=== PATIENT | male | born 1980 | race Caucasian/White ===

== ENCOUNTER 2016-06-02 22:47 | Emergency (ER) | payer OTHER ==
[~2016-06-02] VITALS: Ht 172.7 cm; Wt 136.9 kg
[~2016-06-02 22:47] MED LIST: ADIPEX-P37.5 MG; ADVAIR 250/501 DISK IH; ADVAIR HFA120 INHALA IH; AMLODIPINE BESY10 MG PO; ATORVASTATIN CA10 MG PO; AUGMENTIN875 MG PO; BACTRIM,SEPT1 TABLET; BUSPAR5 MG PO; CEPHALEXIN500 M1 PO; CLEOCIN300 MG PO; CLINDAMYCIN HC300 MG PO; COZAAR100 MG PO; CYMBALTA60 MG PO; ERGOCALCIF50000 UNIT PO; FLONASE16 G1 BOTH NARES; FUROSEMIDE80 MG PO; HYDROCODON-ACE1 EAC7 PO; HYDROCODON-ACE1 EACH; INDOCIN SR75 MG PO; INDOMETHACIN75 MG PO; K-DUR20 MEQ PO; KEFLEX500 MG PO; KLOR-CON M2020 MEQ PO; KLOR-CON-EF 2525 MEQ PO; LASIX80 MG PO; LOSARTAN POTAS100 MG PO; NORVASC10 MG PO; PERCOCET 5/31 TABLET PO; PERCOCET 7.51 TABLET PO; PROAIR HFA8.5 GM IH; ROXICET 5-3251 EACH; TRAMADOL HCL50 MG PO; VENTOLIN HFA18 GM IH; VERAPAMIL HCL120 M1 PO; VERAPAMIL HCL120 M2 PO; VERAPAMIL HCL120 MG PO
[2016-06-02 22:50] VITALS: BP 146/78
[2016-06-02 23:17] LABS: HEMATOCRIT 43.4 % (38.0-50.0); MCH 28.8 PG (29.0-34.0); MCHC 32.3 G/DL (30.0-36.0); MCV 89.3 FL (86-99); RBC DIS.WIDTH-CV 13.1 % (11.8-14.6); RBC DIS.WIDTH-SD 42.6 % (39-53); RED BLOOD COUNT 4.86 M/uL (4.00-5.50); WHITE BLOOD COUNT 11.8 K/uL (4.1-10.2)
[2016-06-02 23:26] LABS: CHLORIDE 101 mEq/L (99-109); POTASSIUM 4.6 mEq/L (3.7-5.4); SODIUM 139 mEq/L (136-147)
[2016-06-02 23:28] LABS: GLUCOSE 74 mg/dL (70-99)
[2016-06-02 23:29] LABS: ANION GAP 8 MEQ/L (2-14)
[2016-06-02 23:30] LABS: TOTAL BILIRUBIN 0.2 mg/dL (0.0-1.0)
[2016-06-02 23:32] LABS: ALKALINE PHOSPHATASE 82 IU/L (3-129); GFR ESTIMATE (CALCULATED) > 59 mL/min/
[2016-06-02 23:33] LABS: UREA NITROGEN (BUN) 15 mg/dL (9-23)
[2016-06-02 23:34] LABS: ADD MIUA? NO; BILIRUBIN NEGATIVE; BLOOD NEGATIVE; COLOR COLORLESS ((YELLOW)); GLUCOSE (STRIP) NEGATIVE; KETONES NEGATIVE; LEUKOCYTES NEGATIVE; NITRITE NEGATIVE; PROTEIN (STRIP) NEGATIVE; SPECIFIC GRAVITY 1.008 (1.000-1.030); UCUL ADDED? NO; UROBILINOGEN 0.2 MG/DL (0.2-1.0)
[2016-06-02 23:35] LABS: LIPASE 21 U/L (1.0-51.0)
[2016-06-03 00:11] LABS: MEAN PLAT.VOLUME 12.2 uM^3 (9.0-12.4); PLAT.SUFFICIENCY ADEQUATE; PLATELET COUNT 288 K/uL (156-360)
== END 2016-06-03 02:04 | disposition left against medical advice (07) ==
LOC: EME 22:47
DX: R10.9 Unspecified abdominal pain (principal); Z53.21 Procedure and treatment not carried out due to patient leaving prior to being seen by health care provider
CPT/HCPCS: 80053; 81003; 83690; 85027

== ENCOUNTER 2016-07-03 16:48 | Emergency (ER) | payer OTHER ==
[~2016-07-03] VITALS: Ht 172.7 cm; Wt 136.6 kg
[2016-07-03 18:27] LABS: HEMATOCRIT 40.6 % (38.0-50.0); MCH 28.8 PG (29.0-34.0); MCHC 31.8 G/DL (30.0-36.0); RBC DIS.WIDTH-CV 13.2 % (11.8-14.6); RBC DIS.WIDTH-SD 44.5 % (39-53); RED BLOOD COUNT 4.48 M/uL (4.00-5.50); WHITE BLOOD COUNT 10.3 K/uL (4.1-10.2)
[2016-07-03 18:28] LABS: MCV 90.6 FL (86-99)
[2016-07-03 18:38] LABS: CHLORIDE 106 mEq/L (99-109); POTASSIUM 4.7 mEq/L (3.7-5.4); SODIUM 140 mEq/L (136-147)
[2016-07-03 18:40] LABS: GLUCOSE 92 mg/dL (70-99)
[2016-07-03 18:41] LABS: ANION GAP 7 MEQ/L (2-14)
[2016-07-03 18:43] LABS: GFR ESTIMATE (CALCULATED) > 59 mL/min/
[2016-07-03 18:44] LABS: UREA NITROGEN (BUN) 9 mg/dL (9-23)
[2016-07-03 19:21] LABS: HEMATOLOGY COMMENT 1 SN; PLAT.SUFFICIENCY ADEQUATE; PLATELET COUNT 326 K/uL (156-360)
[2016-07-03] MEDS ORDERED: KEFLEX500 MG PO (19:26)
[2016-07-03] MEDS ORDERED: NAPROSYN500 MG PO (19:27)
[2016-07-03 19:37] VITALS: BP 143/94
== END 2016-07-03 19:28 | disposition home or self-care (01) ==
LOC: EME 16:48
PROVIDERS: Physician Assistant
DX: M79.604 Pain in right leg (principal); I73.9 Peripheral vascular disease, unspecified; I10 Essential (primary) hypertension; Z87.891 Personal history of nicotine dependence; Z98.84 Bariatric surgery status
CPT/HCPCS: 73590; 80048; 85027; 93971; 99281; 99283

== ENCOUNTER 2017-10-02 19:30 | Emergency (ER) | payer OTHER ==
[~2017-10-02] VITALS: Ht 172.7 cm; Wt 118.4 kg
[~2017-10-02 19:30] MED LIST changes: +NAPROSYN500 MG PO
[2017-10-02] MEDS ORDERED: ULTRACET1 TABLET PO (20:58)
[2017-10-02 21:13] VITALS: BP 151/89
== END 2017-10-02 21:14 | disposition home or self-care (01) ==
LOC: RME 19:30 → EME 19:30 → RME 21:14
DX: S53.402A Unspecified sprain of left elbow, initial encounter (principal); X50.0XXA Overexertion from strenuous movement or load, initial encounter; Y93.89 Activity, other specified; Z88.2 Allergy status to sulfonamides
CPT/HCPCS: 73080; 99281; 99284